=== PATIENT | male | born 2000 ===

== ENCOUNTER 2021-10-19 15:36 | Emergency (ER) | payer SELFPAY ==
[2021-10-19 19:43] VITALS: BP 154/86
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
--- NOTE | 2021-10-19 21:52 | XRay Report ---
LEFT WRIST 4 VIEW(S) INDICATION / CLINICAL INFORMATION: wrist pain swelling after fall COMPARISON: None available. FINDINGS: BONES / JOINT(S): No acute displaced fracture or dislocation. No significant arthritis. SOFT TISSUES: There is soft tissue swelling at the dorsum of the wrist. ADDITIONAL FINDINGS: None. Signer Name: Duane Correia MD Signed: 10/19/2021 9:47 PM Workstation Name: [id number]
== END 2021-10-20 00:18 | disposition home or self-care (01) ==
LOC: ED 15:36
DX: S66.912A Strain of unspecified muscle, fascia and tendon at wrist and hand level, left hand, initial encounter (principal); S50.811A Abrasion of right forearm, initial encounter; S50.812A Abrasion of left forearm, initial encounter; V87.8XXA Person injured in other specified noncollision transport accidents involving motor vehicle (traffic), initial encounter; Y93.89 Activity, other specified; Y92.89 Other specified places as the place of occurrence of the external cause; Y99.8 Other external cause status; Z79.899 Other long term (current) drug therapy
CPT/HCPCS: 29260; 99283